=== PATIENT | female | born 1990 | race African-American/Black ===

== ENCOUNTER 2024-12-30 20:54 | Emergency (ER) | payer OTHER ==
[~2024-12-30] VITALS: Ht 157.5 cm; Wt 74.0 kg
[2024-12-30 20:58] VITALS: BP 124/102; PULSE 102; RESP 18; TEMP 36.4; O2SAT 98
[2024-12-30] MEDS: LIDOCAINE 5% PATCH TOP SCH (21:30)
[2024-12-30 21:41] LABS: CLARITY URINE CLOUDY (CLEAR); COLOR URINE YELLOW (YELLOW); GLUCOSE URINE NEGATIVE (NEGATIVE); KETONES URINE NEGATIVE (NEGATIVE); LEUKOCYTE ESTERASE URINE TRACE (NEGATIVE); NITRITE URINE NEGATIVE (NEGATIVE); OCCULT BLOOD URINE NEGATIVE (NEGATIVE); PH URINE 6.5 (4.5-8.0); PROTEIN URINE NEGATIVE (NEGATIVE); SPECIFIC GRAVITY URINE 1.018 (1.005-1.030); UROBILINOGEN URINE 1.0 E.U./dL (0.2-1.0)
[2024-12-30 21:59] LABS: BACTERIA URINE 3+; RBC URINE 0-2 /hpf (0-2); SQUAMOUS EPITHELIAL CELL URINE 3+ /lpf (RARE/1+); WBC URINE 0-2 /hpf (0-2)
[2024-12-30] MEDS: CYCLOBENZAPRINE 10MG TABLET PO NR (23:15)
[2024-12-30] MEDS: KETOROLAC 30MG/ML VIAL IM NR (23:15)
[2024-12-30] MEDS: KETOROLAC 30MG/ML VIAL IM ONE (23:24)
[2024-12-30] MEDS: CYCLOBENZAPRINE 10MG TABLET PO ONE (23:24)
[2024-12-31] MEDS: DIAZEPAM 2 MG TABLET PO ONE (00:46)
[2024-12-31] MEDS: ACETAMINOPHEN 500MG TABLET PO ONE (00:49)
[2024-12-31 01:32] LABS: BASOPHILS % 0.4 % (0.0-2.0); EOSINOPHILS % 0.7 % (0.0-5.0); HEMATOCRIT. 35.2 % (36.0-48.0); HEMOGLOBIN. 12.0 g/dL (12.0-16.0); LYMPHOCYTES % 43.3 % (20.0-50.0); MEAN PLATELET VOLUME 9.4 fl (7.4-10.4); MONOCYTES % 4.0 % (2.0-8.0); NEUTROPHILS % 51.6 % (40.0-76.0); PLATELET 285 x1000/uL (130-400); RED BLOOD CELL COUNT 3.98 mill/uL (4.2-5.4); RED CELL DISTRIBUTION WIDTH 12.3 % (11.6-14.6)
[2024-12-31 01:44] LABS: CREATININE 0.8 mg/dL (0.6-1.0)
[2024-12-31 01:45] LABS: UREA NITROGEN BLOOD 9 mg/dL (9-23)
[2024-12-31 01:46] LABS: ASPARTATE AMINOTRANSFERASE 16 IU/L (<34)
[2024-12-31 01:47] LABS: BILIRUBIN DIRECT 0.2 mg/dL (<=3.0); BILIRUBIN TOTAL 0.6 mg/dL (0.1-1.0); PROTEIN TOTAL 7.5 g/dL (6.0-8.3)
[2024-12-31] MEDS ORDERED: TRAMADOL 50MG TABLET PO PRN (04:00)
[2024-12-31] MEDS ORDERED: ONDANSETRON HCL 4MG/2ML INJ IV PRN (04:00)
[2024-12-31] MEDS ORDERED: IPRATROPIUM/ALBUTEROL 0.5-3(2.5)MG/3ML NEB HHN PRN (04:00)
[2024-12-31] MEDS ORDERED: CLONIDINE 0.1MG TABLET PO PRN (04:00)
[2024-12-31 15:09] LABS: *AMPHETAMINES SCREEN URINE NEGATIVE (NEGATIVE)
[2024-12-31 15:10] LABS: *BARBITURATES SCREEN URINE NEGATIVE (NEGATIVE); *BENZODIAZEPINES SCREEN URINE NEGATIVE (NEGATIVE); *COCAINE SCREEN URINE NEGATIVE (NEGATIVE); CANNABINOID URINE SCREEN NEGATIVE (NEGATIVE); ECSTASY MDMA SCREEN URINE NEGATIVE (NEGATIVE); METHADONE URINE SCREEN NEGATIVE (NEGATIVE); OPIATES URINE SCREEN NEGATIVE (NEGATIVE); PHENCYCLIDINE URINE SCREEN NEGATIVE (NEGATIVE)
== END 2024-12-31 04:38 | disposition left against medical advice (07) ==
LOC: ER 20:54 → EDBEDREQTM 12-31 03:24 → EDBEDREQ 12-31 03:24 → ER 12-31 04:38 → CMPBEDREQ 12-31 08:52
DX: M54.50 Low back pain, unspecified (principal); D64.9 Anemia, unspecified; Z88.5 Allergy status to narcotic agent; Z79.899 Other long term (current) drug therapy
CPT/HCPCS: 99285; 72131; 80305; 96372; 81003; 80076; 80048; 85025; 36415; J1885